=== PATIENT | male | born 1990 ===

== ENCOUNTER 2019-12-09 15:10 | Outpatient (REF) | payer SELFPAY ==
[2019-12-11 21:31] LABS: SARS-CoV-2 RNA Undetected (Undetected); SARS-CoV-2 Specimen Source Nasopharynx
== END 2019-12-09 15:30 ==
LOC: NCHCN 15:10
PROVIDERS: Visit Provider Nurse Practitioner Family
DX: R50.9 Fever, unspecified (principal); Z20.828 Contact with and (suspected) exposure to other viral communicable diseases
CPT/HCPCS: U0003